=== PATIENT | male | born 1975 | race Caucasian/White ===

== ENCOUNTER → 2019-12-03 | Outpatient (CLI) | payer BC ==
[2019-12-06 15:07] LABS: GLIA IGA 6 units (0-19); GLIA IGG 2 units (0-19); TRANSGLUTAMINASE IGA AB <2 U/mL (0-3); TRANSGLUTAMINASE IGG AB 4 U/mL (0-5)
== END | disposition home or self-care (01) ==
LOC: LAB 16:40
PROVIDERS: ATTEND Specialist
DX: K52.9 Noninfective gastroenteritis and colitis, unspecified (principal)
CPT/HCPCS: 36415; 83516

== ENCOUNTER → 2022-02-13 | Outpatient (CLI) | payer BC ==
--- NOTE | 2022-02-13 16:47 | RAD ---
XR KNEE _3 VIEWS_LT DATE: 02/13/2022 4:42 PM INDICATION: Reason: CHRONIC LT KNEE PAIN / Spl. Instructions: / History: COMPARISON: None FINDINGS: Bones: There is no evidence of acute fracture or dislocation. Joints: The joint spaces are normal. Marginal osteophytes within the medial compartment. There is no joint effusion. Miscellaneous: None. IMPRESSION: No evidence of acute fracture. Electronically signed by: Jhon Santamaria DO (02/13/2022 4:45 PM) [id number]
== END ==
LOC: RAD 16:22
PROVIDERS: ATTEND Orthopaedic Surgery
DX: M25.762 Osteophyte, left knee (principal)
CPT/HCPCS: 73562